=== PATIENT | male | born 1940 | race Hispanic/Latino ===

== ENCOUNTER 2021-04-25 11:27 | Emergency (ER) | payer MEDICARE ==
[~2021-04-25] VITALS: Ht 165.1 cm; Wt 79.4 kg
[2021-04-25 12:16] LABS: BASOPHILS # (AUTO) 0.1 (0.0-0.1); BASOPHILS % 0.6 % (0.0-1.0); EOSINOPHILS # (AUTO) 0.1 (0.0-0.4); EOSINOPHILS % 0.8 % (0.0-6.0); HEMOGLOBIN 13.5 g/dL (14.0-18.0); LYMPHOCYTES # (AUTO) 2.1 (1.0-3.2); LYMPHOCYTES % 18.4 % (18.0-39.1); MEAN CORPUSCULAR HGB CONC 32.9 g/dL (31-35); MEAN CORPUSCULAR VOLUME 91.1 fL (81-99); MONOCYTES # (AUTO) 0.9 (0.2-0.8); NEUTROPHILS # (AUTO) 8.3 (2.1-6.9); NEUTROPHILS % 71.8 % (38.7-80.0); PLATELET COUNT 213 x10e3/uL (140-360); RED CELL DISTRIBUTION WIDTH 12.8 % (11.7-14.4)
[2021-04-25 12:33] LABS: CLARITY,URINE TURBID (CLEAR); COLOR,URINE YELLOW (YELLOW); LEUKOCYTE ESTERASE ,URINE SMALL (NEGATIVE); NITRITE,URINE NEGATIVE (NEGATIVE)
[2021-04-25 12:34] LABS: KETONES,URINE NEGATIVE (NEGATIVE); PROTEIN,URINE DIPSTICK NEGATIVE (NEGATIVE); URINE UROBILINOGEN 0.2 mg/dL (0.2 - 1)
[2021-04-25 12:38] LABS: BACTERIA,URINE FEW /HPF; EPITHELIAL CELLS,URINE FEW /LPF
[2021-04-25 13:01] LABS: ALBUMIN/GLOBULIN RATIO 1.3 (0.8-2.0); ANION GAP 14.4 mmol/L (8-16); CALCIUM 9.7 mg/dL (8.4-10.2); CREATININE, SERUM 1.12 mg/dL (0.72-1.25); POTASSIUM 4.4 mmol/L (3.5-5.1)
[2021-04-25] MEDS ORDERED: LEVOFLOXACIN500 MG PO (14:10)
== END 2021-04-25 14:30 | disposition home or self-care (01) ==
LOC: ER 11:32
DX: N50.812 Left testicular pain (principal); N45.1 Epididymitis; E11.65 Type 2 diabetes mellitus with hyperglycemia; I10 Essential (primary) hypertension; E78.5 Hyperlipidemia, unspecified; I50.9 Heart failure, unspecified
CPT/HCPCS: 36415; 76870; 80053; 81001; 85025; 87086; 93976; 99283

== ENCOUNTER 2021-05-26 10:49 | Inpatient (IN) | payer MEDICARE, OTHER ==
[~2021-05-26] VITALS: Ht 162.6 cm; Wt 79.4 kg
[~2021-05-26 10:49] MED LIST: LEVOFLOXACIN500 MG PO
[2021-05-26] MEDS ORDERED: SODIUM CHLORIDE 0.9% 500ML 500 ML IV ONE (11:15)
[2021-05-26 11:21] LABS: BASOPHILS # (AUTO) 0.1 (0.0-0.1); BASOPHILS % 0.8 % (0.0-1.0); EOSINOPHILS # (AUTO) 0.1 (0.0-0.4); EOSINOPHILS % 0.6 % (0.0-6.0); HEMATOCRIT 39.4 % (38.2-49.6); HEMOGLOBIN 13.1 g/dL (14.0-18.0); LYMPHOCYTES # (AUTO) 1.1 (1.0-3.2); LYMPHOCYTES % 12.3 % (18.0-39.1); MEAN CORPUSCULAR HEMOGLOBIN 29.9 pg (28-32); MEAN CORPUSCULAR HGB CONC 33.2 g/dL (31-35); MONOCYTES # (AUTO) 0.5 (0.2-0.8); MONOCYTES % 6.3 % (4.4-11.3); NEUTROPHILS # (AUTO) 6.8 (2.1-6.9); NEUTROPHILS % 79.5 % (38.7-80.0); PLATELET COUNT 245 x10e3/uL (140-360); RED BLOOD COUNT 4.38 x10e6/uL (4.3-5.7); RED CELL DISTRIBUTION WIDTH 12.6 % (11.7-14.4)
[2021-05-26] MEDS: PIPERACILLIN/TAZOBACTAM 3.375 GM in SODIUM CHLORIDE 0.9% 50ML 50 ML IV SCH ×3 (11:34→23:44)
[2021-05-26 11:41] LABS: ALBUMIN 3.8 g/dL (3.5-5.0); ALBUMIN/GLOBULIN RATIO 1.2 (0.8-2.0); CALCIUM 9.8 mg/dL (8.4-10.2); CREATININE, SERUM 1.68 mg/dL (0.72-1.25); MAGNESIUM 1.8 MG/DL (1.3-2.1)
[2021-05-26] MEDS ORDERED: ONDANSETRON HCL INJ 2MG/ML 2ML 2 MG/ML VIAL IV PRN (11:45)
[2021-05-26 11:49] LABS: INR 0.94; PROTHROMBIN TIME 13.4 seconds (11.9-14.5)
[2021-05-26 11:50] LABS: PARTIAL THROMBOPLASTIN TIME 28.9 seconds (23.8-35.5)
[2021-05-26 12:00] LABS: CLARITY,URINE CLEAR (CLEAR); COLOR,URINE YELLOW (YELLOW); KETONES,URINE NEGATIVE (NEGATIVE); LEUKOCYTE ESTERASE ,URINE SMALL (NEGATIVE); NITRITE,URINE NEGATIVE (NEGATIVE); PROTEIN,URINE DIPSTICK NEGATIVE (NEGATIVE); URINE UROBILINOGEN 0.2 mg/dL (0.2 - 1)
[2021-05-26 12:24] LABS: BACTERIA,URINE MANY /HPF; EPITHELIAL CELLS,URINE FEW /LPF; WBC,URINE (MAN) >50 /HPF (0-5)
[2021-05-26] MEDS ORDERED: ACETAMINOPHEN 325 MG TAB PO PRN (12:30)
[2021-05-26] MEDS ORDERED: DOCUSATE SODIUM 100 MG CAP PO PRN (12:30)
[2021-05-26 12:41] LABS: CHOL/HDL RATIO 2.5 (3.9-4.7)
[2021-05-26] MEDS ORDERED: Morphine 4mg Syringe 4 MG/ML INJ IV PRN (14:30)
[2021-05-26 15:08] VITALS: BP 144/67
[2021-05-26 15:23] VITALS: BP 144/67
[2021-05-26 15:25] VITALS: BP 144/67
[2021-05-26] MEDS ORDERED: DEXILANT60 MG PO (16:13)
[2021-05-26] MEDS ORDERED: GLIMEPIRIDE2 MG PO (16:13)
[2021-05-26] MEDS ORDERED: HYDROCHLOROTHIA25 MG PO (16:13)
[2021-05-26] MEDS ORDERED: HYDRALAZINE HCL10 MG PO (16:13)
[2021-05-26] MEDS ORDERED: METOPROLOL TART25 MG PO (16:13)
[2021-05-26] MEDS ORDERED: LYRICA150 MG PO (16:13)
[2021-05-26] MEDS ORDERED: SIMVASTATIN40 MG PO (16:13)
[2021-05-26] MEDS ORDERED: DIOVAN160 MG PO (16:13)
[2021-05-26] MEDS ORDERED: AMLODIPINE BESY10 MG PO (16:13)
[2021-05-26 20:00] VITALS: BP 128/59
[2021-05-26] MEDS ORDERED: DEXTROSE 50% SYRINGE 50 ML IV PRN (21:45)
[2021-05-26] MEDS: INSULIN REGULAR, HUMAN 100 UNIT/1 ML SQ SCH (21:51)
[2021-05-27] VITALS (7 sets, daily range): BP systolic 108–129; BP diastolic 57–62
[2021-05-27 05:00] LABS: BASOPHILS # (AUTO) 0.1 (0.0-0.1); BASOPHILS % 0.9 % (0.0-1.0); EOSINOPHILS # (AUTO) 0.1 (0.0-0.4); HEMATOCRIT 35.5 % (38.2-49.6); HEMOGLOBIN 11.8 g/dL (14.0-18.0); LYMPHOCYTES # (AUTO) 1.1 (1.0-3.2); LYMPHOCYTES % 14.1 % (18.0-39.1); MEAN CORPUSCULAR HEMOGLOBIN 30.1 pg (28-32); MEAN CORPUSCULAR HGB CONC 33.2 g/dL (31-35); MEAN CORPUSCULAR VOLUME 90.6 fL (81-99); MONOCYTES # (AUTO) 0.7 (0.2-0.8); NEUTROPHILS % 74.8 % (38.7-80.0); PLATELET COUNT 202 x10e3/uL (140-360); RED BLOOD COUNT 3.92 x10e6/uL (4.3-5.7); RED CELL DISTRIBUTION WIDTH 12.8 % (11.7-14.4)
[2021-05-27 05:38] LABS: ALBUMIN 3.3 g/dL (3.5-5.0); ALBUMIN/GLOBULIN RATIO 1.2 (0.8-2.0); ANION GAP 13.8 mmol/L (8-16); CALCIUM 9.6 mg/dL (8.4-10.2); CREATININE, SERUM 1.5 mg/dL (0.72-1.25); POTASSIUM 3.8 mmol/L (3.5-5.1)
[2021-05-27] MEDS: PIPERACILLIN/TAZOBACTAM 3.375 GM in SODIUM CHLORIDE 0.9% 50ML 50 ML IV SCH ×3 (06:18→18:00)
[2021-05-27] MEDS ORDERED: ONDANSETRON HCL 4 MG ORAL DISINTEGRATING TAB PO PRN (07:30)
[2021-05-27] MEDS: INSULIN REGULAR, HUMAN 100 UNIT/1 ML SQ SCH ×3 (11:30→20:49)
[2021-05-27] MEDS: PREGABALIN 75 MG CAP PO SCH (17:00)
[2021-05-27] MEDS: HYDRALAZINE HCL 10 MG TAB PO SCH (17:00)
[2021-05-27] MEDS: SIMVASTATIN 40 MG TAB PO SCH (20:49)
[2021-05-28] VITALS (7 sets, daily range): BP systolic 106–127; BP diastolic 55–75
[2021-05-28] MEDS: PIPERACILLIN/TAZOBACTAM 3.375 GM in SODIUM CHLORIDE 0.9% 50ML 50 ML IV SCH ×5 (00:09→23:24)
[2021-05-28] MEDS: INSULIN REGULAR, HUMAN 100 UNIT/1 ML SQ SCH ×4 (07:30→21:00)
[2021-05-28] MEDS: HYDROCHLOROTHIAZIDE 25 MG TAB PO SCH (08:23)
[2021-05-28] MEDS: METOPROLOL TARTRATE 25 MG TAB PO SCH (08:23)
[2021-05-28] MEDS: AMLODIPINE BESYLATE 10 MG TAB PO SCH (08:23)
[2021-05-28] MEDS: GLIMEPIRIDE 2 MG TAB PO SCH (08:23)
[2021-05-28] MEDS: PREGABALIN 75 MG CAP PO SCH ×2 (08:23→17:30)
[2021-05-28] MEDS: HYDRALAZINE HCL 10 MG TAB PO SCH ×2 (08:23→17:30)
[2021-05-28] MEDS: PANTOPRAZOLE SOD 40 MG TABEC PO SCH (08:24)
[2021-05-28] MEDS: SIMVASTATIN 40 MG TAB PO SCH (22:21)
[2021-05-29] VITALS: BP 111/52
[2021-05-29 04:00] VITALS: BP 131/73
[2021-05-29] MEDS: PIPERACILLIN/TAZOBACTAM 3.375 GM in SODIUM CHLORIDE 0.9% 50ML 50 ML IV SCH (05:05)
[2021-05-29 06:18] LABS: BASOPHILS # (AUTO) 0.1 (0.0-0.1); BASOPHILS % 1.1 % (0.0-1.0); EOSINOPHILS # (AUTO) 0.1 (0.0-0.4); EOSINOPHILS % 1.9 % (0.0-6.0); HEMOGLOBIN 13.1 g/dL (14.0-18.0); LYMPHOCYTES # (AUTO) 2.1 (1.0-3.2); MEAN CORPUSCULAR HEMOGLOBIN 30.3 pg (28-32); MEAN CORPUSCULAR HGB CONC 33.6 g/dL (31-35); MEAN CORPUSCULAR VOLUME 90.1 fL (81-99); MONOCYTES # (AUTO) 0.6 (0.2-0.8); MONOCYTES % 8.8 % (4.4-11.3); NEUTROPHILS # (AUTO) 4.2 (2.1-6.9); NEUTROPHILS % 58.8 % (38.7-80.0); PLATELET COUNT 210 x10e3/uL (140-360); RED BLOOD COUNT 4.33 x10e6/uL (4.3-5.7); RED CELL DISTRIBUTION WIDTH 12.6 % (11.7-14.4)
[2021-05-29] MEDS ORDERED: CEFUROXIME250 MG PO (06:31)
[2021-05-29 06:54] LABS: ANION GAP 11.4 mmol/L (8-16); CALCIUM 9.6 mg/dL (8.4-10.2); CREATININE, SERUM 1.05 mg/dL (0.72-1.25); POTASSIUM 3.4 mmol/L (3.5-5.1)
[2021-05-29] MEDS: INSULIN REGULAR, HUMAN 100 UNIT/1 ML SQ SCH (07:14)
[2021-05-29] MEDS: HYDROCHLOROTHIAZIDE 25 MG TAB PO SCH (08:07)
[2021-05-29] MEDS: HYDRALAZINE HCL 10 MG TAB PO SCH (08:07)
[2021-05-29] MEDS: GLIMEPIRIDE 2 MG TAB PO SCH (08:07)
[2021-05-29] MEDS: METOPROLOL TARTRATE 25 MG TAB PO SCH (08:08)
[2021-05-29] MEDS: PANTOPRAZOLE SOD 40 MG TABEC PO SCH (08:08)
[2021-05-29] MEDS: AMLODIPINE BESYLATE 10 MG TAB PO SCH (08:08)
[2021-05-29] MEDS: PREGABALIN 75 MG CAP PO SCH (08:08)
[2021-05-29 08:13] VITALS: BP 143/66
[2021-05-29 09:07] VITALS: BP 143/66
== END 2021-05-29 10:11 | disposition home or self-care (01) | DRG 728 ==
LOC: ER 11:00 → ERHOLD 11:33 → MED/SURG3 14:43
PROVIDERS: ADMIT Internal Medicine; ATTEND Internal Medicine
DX: N45.3 Epididymo-orchitis (principal); N39.0 Urinary tract infection, site not specified; N17.9 Acute kidney failure, unspecified; N50.89 Other specified disorders of the male genital organs; N43.3 Hydrocele, unspecified; E11.9 Type 2 diabetes mellitus without complications; E78.5 Hyperlipidemia, unspecified; Z90.79 Acquired absence of other genital organ(s); Z20.822 Contact with and (suspected) exposure to COVID-19; R73.9 Hyperglycemia, unspecified; E16.2 Hypoglycemia, unspecified
CPT/HCPCS: 36415; 76870; 80048; 80053; 80061; 81001; 82948; 83036; 83735; 85025; 85610; 85730; 87040; 87086; 93976; 94799; 99284; J1817; J2270; J2543; J7040; U0002